=== PATIENT | male | born 1985 | race Asian ===

== ENCOUNTER 2023-10-06 21:05 | Emergency (ER) | payer OTHER ==
[2023-10-06 21:13] VITALS: RESP 18; BMI 29.6
[2023-10-06] MEDS ORDERED: ACETAMINOPHEN INJECTION 100 ML IVPB ONE (22:16)
[2023-10-06] MEDS ORDERED: ACETAMINOPHEN 325 MG TABLET (FP) ONE (22:31)
[2023-10-06] MEDS: ACETAMINOPHEN 325 MG TABLET (FP) PO ONE (22:35)
[2023-10-06 22:36] LABS: BASO % 0.9 % (0-2.0); EOS % 2.9 % (0-4.5); HEMATOCRIT 44.1 % (35.4-49); HEMOGLOBIN 15.1 GM/dL (11.7-16.9); LYMPH % 31.7 % (8-40); MCH 28.5 pg (25.7-33.7); MCHC 34.1 g/dl (32.0-35.9); MEAN CELL VOLUME 83.4 fl (80-96); MEAN PLT VOLUME 7.1 fl (7.5-11.1); MONO % 6.6 % (3.8-10.2); NEUT % 57.9 % (42.8-82.8); PLATELET COUNT 346 10^3/uL (134-434); RBC 5.29 M/mm3 (4.00-5.60); RDW 15.8 % (11.9-15.9); WHITE BLOOD COUNT 9.2 K/mm3 (4.0-10.0)
[2023-10-06] MEDS: ACETAMINOPHEN 1000 MG/100 ML BAG IVPB ONE (22:48)
[2023-10-06] MEDS: ACETAMINOPHEN 500 MG TABLET (FP) PO ONE (22:48)
[2023-10-06 23:02] LABS: POTASSIUM 4.2 mmol/L (3.5-5.1)
[2023-10-06 23:04] LABS: CALCIUM 9.4 mg/dL (8.5-10.1)
[2023-10-06 23:05] LABS: ALBUMIN 3.8 g/dl (3.4-5.0); BLOOD UREA NITROGEN 16.9 mg/dL (7-18)
[2023-10-06] MEDS ORDERED: ANAPHYLAXIS KIT ONE (23:06)
[2023-10-06 23:08] LABS: CREATININE 1.4 mg/dL (0.55-1.3)
[2023-10-06 23:09] LABS: BILIRUBIN,TOTAL 0.3 mg/dL (0.2-1)
[2023-10-07 00:36] VITALS: BP 179/105; PULSE 94; TEMP 98.5
== END 2023-10-07 01:16 | disposition home or self-care (01) ==
LOC: JER 21:05
DX: I10 Essential (primary) hypertension (principal); R51.9 Headache, unspecified; R79.89 Other specified abnormal findings of blood chemistry
CPT/HCPCS: 36415; 80053; 85025; 99283-25